=== PATIENT | female | born 1955 | race Native Hawaiian/Other Pacific Islander ===

== ENCOUNTER 2016-12-20 15:20 | Emergency (ER) | payer OTHER ==
[2016-12-20 15:20] VITALS: BMI 23.0
[2016-12-20 15:48] VITALS: BP 108/68; PULSE 64; RESP 20; TEMP 98.3; O2SAT 99
[2016-12-20] MEDS ORDERED: Naproxen 550 mg Tab PO STA (17:38)
[2016-12-20] MEDS ORDERED: Naproxen 550 mg Tab PO ONE (17:41)
--- NOTE | 2016-12-20 18:28 | C.PDOC ---
History Of Present Illness Pt c/o left knee pain. Time Seen by Provider: 12/20/16 17:16 Chief Complaint (Nursing): Lower Extremity Problem/Injury History Per: Patient, Family Onset/Duration Of Symptoms: Days (about 2 weeks) Current Symptoms Are (Timing): Still Present Severity: Moderate Additional History Per: Prior Records - Knee Description Of Injury: Twisted (?) Alleviating Factor(s): OTC Pain Medication Past Medical History Reviewed: Historical Data, Nursing Documentation, Vital Signs Vital Signs: Last Vital Signs Temp 98.3 F 12/20/16 15:44 Pulse 64 12/20/16 15:44 Resp 20 12/20/16 15:44 BP 108/68 12/20/16 15:44 Pulse Ox 99 12/20/16 15:44 - Medical History PMH: Diabetes Family History: States: Unknown Family Hx - Social History Hx Tobacco Use: No Hx Alcohol Use: No Hx Substance Use: No - Immunization History Hx Tetanus Toxoid Vaccination: No Hx Influenza Vaccination: No Hx Pneumococcal Vaccination: No Review Of Systems Except As Marked, All Systems Reviewed And Found Negative. Constitutional: Negative for: Fever, Weakness Cardiovascular: Negative for: Chest Pain Respiratory: Negative for: Shortness of Breath Gastrointestinal: Negative for: Vomiting, Abdominal Pain Musculoskeletal: Negative for: Neck Pain, Back Pain, Leg Pain, Foot Pain Skin: Negative for: Rash Neurological: Negative for: Weakness, Numbness, Seizures, Altered Mental Status Physical Exam - Physical Exam Appears: Non-toxic, No Acute Distress Skin: Normal Color, Warm, Dry, No Rash Head: Atraumatic, Normacephalic Neck: Normal ROM, Supple Extremity: Normal ROM, Tenderness (medial aspect of left knee), No Pedal Edema, No Calf Tenderness, No Deformity, No Swelling Extremity: Bilateral: Normal Color And Temperature Pulses: Left Dorsalis Pedis: Normal Neurological/Psych: Oriented x3, Normal Motor, Normal Sensation ED Course And Treatment O2 Sat by Pulse Oximetry: 99 Pulse Ox Interpretation: Normal - Other Rad Left knee x-rays X-Ray: Interpreted by Me, Viewed By Me Interpretation: No acute fx or dislocation. Progress Note: Left knee was DEEP wrapped by me. Reassessment Condition: Improved Disposition Counseled Patient/Family Regarding: Studies Performed, Diagnosis, Need For Followup, Rx Given - Disposition Referrals: Ruth Ann Saldana MD [Family Provider] - Cristhian Yu III, MD [Staff Provider] - Disposition: HOME/ ROUTINE Disposition Time: 18:29 Condition: STABLE Additional Instructions: Rest. Elevate. Ice. DEEP wrap. Follow up with an orthopedic doctor for further evaluation and treatment. Return to the ER if you develop redness, swelling, worsening of symptoms or if you have any other concerns. Prescriptions: Naproxen [Naprosyn Tab] 375 mg PO BID PRN #20 tab PRN Reason: Pain, Moderate (4-7) Instructions: Knee Sprain (ED) Forms: [employer] (Faroese) - Clinical Impression Clinical Impression: Left knee injury
--- NOTE | 2016-12-21 10:55 | RAD ---
PROCEDURE: Left Knee Radiographs. HISTORY: Pain. COMPARISON: None. FINDINGS: BONES: Bone alignment and mineralization are normal. There is no acute displaced fracture or bone destruction. JOINTS: There is mild degenerative osteoarthrosis in the medial compartment. JOINT EFFUSION: None. OTHER FINDINGS: None. 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
== END 2016-12-20 18:39 | disposition home or self-care (01) ==
LOC: C.ER 15:20
DX: S89.92XA Unspecified injury of left lower leg, initial encounter (principal); X58.XXXA Exposure to other specified factors, initial encounter; Y93.9 Activity, unspecified; Y92.9 Unspecified place or not applicable